=== PATIENT | female | born 1955 | race Asian ===

== ENCOUNTER → 2016-10-15 | Outpatient (CLI) | payer OTHER ==
[~2016-10-15] MED LIST: AMARYL2 MG PO; AMIODARONE PO; CIPRO250 M1 PO; JANUMET 50-1,1 UDTAB PO; LANTUS SOLOSTAR3 ML SUBQ; LOSARTAN POTASS25 MG PO; PAIN RELIEF650 MG PO
--- NOTE | ~2016-10-15 | CT3 ---
[facility] A Service of [facility] [place] RADIOLOGY TEXT RESULTS PAT[facility]: [facility] #: [id number] AGE: [address]: Prem Dykes MD SEX: F ORDER DR: [id number] [facility] [address] [place], [place] [address] [id number] O MR#: [id number] Acc #: [id number] NAME: CAS GR : 1955 SEX: F STUDY DATE/TIME: 10/15/2016 14:02 UNIT: [facility] ROOM: STUDY DESCRIPTION: CT Abd and Pelv WWo Cont Attending Physician: Prem Dykes M.D. Referring Physician: Prem Dykes M.D. Ordering Physician: Prem Dykes M.D. Primary Care Physician: [facility] IMAGING REPORT This report is preliminary unless electronic signature is present EXAM CT abdomen without contrast, CT abdomen and pelvis with contrast HISTORY Follow up abnormal diagnostic imaging of the kidneys. PROCEDURE Unenhanced CT of the abdomen. Postcontrast CT of the abdomen and pelvis with multiphase acquisition through the kidneys. COMPARISON 07/25/2016. TECHNIQUE This CT examination was performed with one or more of the following radiation dose reduction techniques: automatic exposure control, adjustment of mA and/or kV according to patient size, and iterative reconstruction. FINDINGS ABDOMEN WITHOUT CONTRAST: Included lung bases predominantly clear. No radiodense gallstones. There is a rim-calcified lesion in the left kidney. No radiodense renal or proximal to mid ureteral calculus. ABDOMEN WITH CONTRAST: Kidneys show prompt enhancement. There is minimal striated enhancement pattern of the right kidney. Previously demonstrated right renal expansion and perinephric stranding has resolved. There is symmetric excretion of contrast with no abnormal filling defects in the collecting systems or proximal ureters. The previously suspected rim-calcified cyst in the left kidney shows brisk arterial enhancement. It follows the enhancement pattern of the vessels on all the images and is most in keeping with a large aneurysm. It is positioned in the anterior [facility] A Service of [facility] RADIOLOGY TEXT RESULTS PATIENT: CAS GR LOCATION: [facility] : 57 UNIT #: [id number] AGE: [address]: Prem Dykes MD SEX: F ORDER DR: left mid kidney in the renal pelvis. No other enhancing renal lesion. Liver, spleen, adrenal glands, pancreas, gallbladder unremarkable. The bowel loops are nondilated. Appendix is normal. PELVIS WITH CONTRAST: No pelvic mass or fluid. Pelvic floor insufficiency. There is a small cystocele and mild descent of the uterus. The small cystocele extends approximately 2.6 cm below the pubococcygeal line and the cervix extends approximately 1.7 cm below the pubococcygeal line. No aggressive appearing bone lesion. IMPRESSION 1. Previous enlargement and stranding around the right kidney has improved. There is a minimal striated enhancement pattern of the right kidney, but no organized abscess. 2. 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 It is positioned in the anterior left kidney, and extends into the renal hilum. It measures 3.3 cm in transverse dimension. It measures up to 4.7 cm in craniocaudal dimension. 3. Pelvic floor insufficiency with a cystocele and mild descent of the uterus as detailed above. Dictated by... Hernan Blank M.D. THIS IS AN ELECTRONICALLY VERIFIED REPORT Hernan Blank M.D. at 10/19/2016 10:02 AM SHILPA/tawanda TD: 10/18/2016 12:51 JOB #: [id number] MEDICAL IMAGING REPORT Page 1 of 1 COPY
[2016-10-15 14:16] LABS: POC - CREATININE 1.09 mg/dL (0.44-1.03)
== END | disposition home or self-care (01) ==
LOC: CCAT 13:20
PROVIDERS: Urology
DX: N28.89 Other specified disorders of kidney and ureter (principal); N28.1 Cyst of kidney, acquired; K82.8 Other specified diseases of gallbladder; J90 Pleural effusion, not elsewhere classified; J98.11 Atelectasis
CPT/HCPCS: 74178; 82565; Q9967

== ENCOUNTER → 2017-02-08 | Outpatient (CLI) | payer OTHER ==
[2017-02-08 13:53] LABS: GLOM FILT RATE Estimated 61.2 mL/min (>60)
== END | disposition home or self-care (01) ==
LOC: CLAB 13:08
PROVIDERS: Registered Nurse
DX: I72.2 Aneurysm of renal artery (principal)
CPT/HCPCS: 36415; 82565; 84520

== ENCOUNTER → 2017-02-15 | Outpatient (CLI) | payer OTHER ==
--- NOTE | ~2017-02-15 | CT13 ---
[facility] A Service of [facility] RADIOLOGY TEXT RESULTS PATIENT: CAS GR LOCATION: [facility] : 57 UNIT #: [id number] AGE: [address]: Bright Dick MD SEX: F ORDER DR: [id number] [facility] [address] [place], [place] [address] [id number] O MR#: [id number] [facility] #: [id number] NAME: CAS GR : 1955 SEX: F STUDY DATE/TIME: 02/15/2017 10:05 UNIT: [facility] ROOM: STUDY DESCRIPTION: CT Angio Abdomen Attending Physician: Bright Dick M.D. Referring Physician: Bright Dick M.D. Ordering Physician: Bright Dick M.D. [facility] REPORT This report is preliminary unless electronic signature is present EXAM CT angiogram of the abdomen INDICATIONS Follow up renal artery aneurysm. TECHNIQUE CT angiogram of the abdomen was performed before and after the administration of IV contrast. Coronal and sagittal reformatted images were obtained. 3-D reformatted images were obtained. This CT exam was performed with one or more of the following radiation dose reduction techniques: Automatic exposure control, adjustment of mA and/or kV according to patient size, and iterative reconstruction. Comparison with 10/15/2016. FINDINGS The lung bases are clear. The liver, gallbladder and spleen are unremarkable. There is a stable large aneurysm in the left renal hilum measuring roughly 3.0 x 3.5 cm. No other aneurysms are seen. Both kidneys enhance symmetrically. No evidence for renal stone. The adrenal glands and pancreas are unremarkable. The abdominal aorta is nonaneurysmal. There is no significant narrowing of the celiac artery or SMA. No significant renal artery narrowing. The inferior mesenteric artery is patent. There is scattered atherosclerotic plaque in the iliac arteries. Bone windows are unremarkable. IMPRESSION There is no significant change in the size of the large left renal artery aneurysm at the hilum. [facility] A Service of [facility] RADIOLOGY TEXT RESULTS PATIENT: CAS GR LOCATION: [facility] : 57 UNIT #: [id number] AGE: [address]: Bright Dick MD SEX: F ORDER DR: Dictated by... Joshua Tobias M.D. THIS IS AN ELECTRONICALLY VERIFIED REPORT Joshua Tobias M.D. at 02/16/2017 4:59 PM ARS/yeimy TD: 02/15/2017 23:27 JOB #: [id number] MEDICAL IMAGING REPORT Page 1 of 1 COPY
== END | disposition home or self-care (01) ==
LOC: CCAT 02-08 15:00
DX: I72.2 Aneurysm of renal artery (principal); E11.9 Type 2 diabetes mellitus without complications; Z79.84 Long term (current) use of oral hypoglycemic drugs
CPT/HCPCS: 74175; Q9967